=== PATIENT | female | born 1980 | race Caucasian/White ===

== ENCOUNTER 2024-06-29 03:30 | Inpatient (IN) | payer OTHER, SELFPAY ==
--- NOTE | ~2024-06-29 | XR_ITS ---
CLINICAL HISTORY: nausea 1 view abdomen Comparison: None Findings: No abnormal bowel dilation to suggest obstruction. No abnormal calcifications. Right upper quadrant surgical clips. No acute fractures. Mild degenerative change of the lower lumbar spine. IMPRESSION: No evidence of bowel obstruction. This document has been electronically signed by: Ramiro Anton DO on 06/30/2024 09:49:29
--- OUTSIDE RECORDS SUMMARY | 2024-06-29 03:37 | XMS_ITS | Clinical Summary ---
Author Organization [facility] Address [address] [place] [address] Care Team Providers Care Pool Technician Name Role Phone Patient, Has No Pcp Or Ref Primary Care Provider Unavailable Allergies Active Allergy Reactions Criticality Noted Date Comments Lamotrigine Anaphylaxis High 09/13/2023 Venom-Honey Bee Unknown 06/28/2024 Medications methocarbamoL (ROBAXIN) 500 mg tablet Take 1 tablet (500 mg total) by mouth 2 times a day. 20 tablet 4 Active Additional Information Patient not taking.Reported on 06/21/2024 naproxen (NAPROSYN) 500 mg tablet Take 1 tablet (500 mg total) by mouth 2 times a day with meals. 30 tablet 4 Active Additional Information Patient not taking.Reported on 06/21/2024 acetaminophen (TYLENOL) 325 mg tablet Take 2 tablets (650 mg total) by mouth every 6 hours as needed for pain. 30 tablet 4 Active albuterol (PROAIR HFA,VENTOLIN HFA) 90 mcg inhaler Inhale 2 puffs (180 mcg total) by mouth every 4 hours as needed for wheezing or shortness of breath. Use with spacer. 6.7 g 4 Active Additional Information Patient not taking.Reported on 06/21/2024 ibuprofen (MOTRIN) 800 mg tablet Take 1 tablet (800 mg total) by mouth 3 times a day as needed for pain. 90 tablet 1 5 08/03/19 25 Active Encounters Date Type Department Care Team Description 06/28/2024 4:29 PM EDT - 06/29/2024 2:38 AM EDT [facility] Emergency Department [address] [place] [id number] Nathan Dominguez MD Gaudet, Cynthia M., DO Major depressive disorder, recurrent severe without psychotic features (HCC) [F33.2] (Primary Dx); Cannabis use disorder, moderate, dependence (HCC) [F12.20]; Cocaine use disorder, moderate, dependence (HCC) [F14.20]; Generalized anxiety disorder [F41.1] Discharge Disposition: [facility] (INPT Psych facility/unit) (65) 06/24/2024 10:37 PM EDT - 06/24/2024 10:47 PM EDT [facility] Emergency Department [address] [place] [id number] Romario Jimenez MD Discharge Disposition: Left Without Being Seen (07) 06/21/2024 10:19 AM EDT - 06/21/2024 11:33 AM EDT [facility] Emergency Department [address] [place] [id number] Kath Balbuena MD Hip sprain, right, initial encounter (Primary Dx) Discharge Disposition: Home or Self Care () 06/18/[address] Orthopedic Department [address] [place] [phone] Jennifer Armenta MD pain meds 06/03/2024 2:45 PM EDT Office Visit [address] Orthopedic Department [address] [place] [id number] Jennifer Armenta MD Injury of left shoulder, initial encounter (Primary Dx) 05/28/2024 12:29 PM EST - 05/28/2024 4:31 PM EST [facility] Emergency Department [address] [place] [phone] Harinder Esquivel MD Contusion of left shoulder, initial encounter (Primary Dx) Discharge Disposition: Home or Self Care () from Last 3 Months Family History Medical History Relation Name Comments No Known Problems Brother History of mood disorder and substance abuse No Known Problems Father History of mental illness and substance abuse No Known Problems Mother History of substance abuse and mental illness No Known Problems Sister 1 History of Bipolar disorder and substance use No Known Problems Sister 3 History of depression and substance use Relation Name Status Comments Brother Alive Daughter Alive Father Mother Sister 1 Alive Sister 2 Alive Sister 3 Alive Son 1 Alive Son 2 Alive Social History Tobacco Use Types Packs/Day Years Used Date Smoking Tobacco: Former Cigarettes 1 31.3 S tarted: 03/27/1993 Smokeless Tobacco: Never Tobacco Cessation:Counseling Given: Not Answered Alcohol Use Standard Drinks/Week Comments Not Currently 0 (1 standard drink = 0.6 oz pur e alcohol) rare Comments No Sex and Gender Information Value Date Recorded Sex Assigned at Female 09/13/2023 5:04 PM EDT Legal Sex Female 4:10 PM EDT Gender Identity Female 09/13/2023 5:06 PM EDT Sexual Orientation Not on file Last Filed Vital Signs Vital Sign Reading Time Taken Comments Blood Pressure 193/103 06/29/2024 2:27 AM EDT taken after pt ambulated to the EMS stretcher Pulse 60 06/29/2024 2:27 AM EDT Temperature 36.7 ??C (98 ??F) 06/29/2024 2:2 7 AM EDT Respiratory Rate 18 06/29/2024 2:27 AM EDT Oxygen Saturation 97% 06/29/2024 2:2 7 AM EDT Inhaled Oxygen Concentration - - Weight 92.5 kg (204 lb) 06/28/2024 4:25 PM EDT Height 170.2 cm (5' 7 ) 06/28/2024 4:25 PM EDT Body Mass Index 31.95 06/28/2024 4:25 PM EDT Plan of Treatment Health Maintenance Due Date Last Done Comments Cervical Cancer Screening 1978 Cologuard 1978 Colon Cancer Screening 1978 Colonoscopy 1978 FOBT / Fit Test 1978 HIV Screening 1978 HPV and Pap Smear 1978 Hepatitis C Screening 1978 Pap Smear 1978 Sigmoidoscopy 1978 Hepatitis B Vaccines (1 of 3 - 19+ 3-dose series) 1997 DTaP,Tdap,and Td Vaccines (1 - Tdap) 2000 Mammogram 2018 COVID-19 Vaccine (2023-2 5 season) 2023 Alcohol/Substance Use Screening 03/27/2024 Depression Screening and Follow-Up 03/27/2024 Oral Health Screening 03/27/2024 Social Drivers of Health Sarahy ual Screening 03/27/2024 Chlamydia Screening 11/06/2024 11/07/2023 Influenza Vaccine (Season Ended) 2024 RSV Vaccine (60+ years old a nd patients) (1 - 1-dose 75+ series) 2053 Pneumococcal Vaccine: Pediat rachana (0-5 Years) and At-Risk Patients (6-50 Years) Aged Out No longer eligible b ased on patient's age to complete this topic Procedures * Due to [place] state law, this organization might not be sharing negative HIV tests. Procedure Name Priority Date/Time Associated Diagnosis Comments ETHANOL STAT 06/28/2024 5:01 PM EDT CBC AUTO DIFFERENTIAL STAT 06/28/2024 5:01 PM EDT COMPREHENSIVE METABOLIC PANEL STAT 06/28/2024 5:01 PM EDT RAPID COVID-19 RNA FOR SURVEILLANCE (ED ONLY) STAT 06/28/2024 4:56 PM EDT MICROSCOPIC URINALYSIS ONLY STAT 06/28/2024 4:55 PM EDT UA/CULTURE REFLEX STAT 06/28/2024 4:5 5 PM EDT DRUG SCREEN, URINE (ED-NO REFLEX) - HH STAT 06/28/2024 4:55 PM EDT URINALYSIS W/REFLEX TO MICROSCOPIC & CULTURE STAT 06/28/2024 4:55 PM EDT HCG QUALITATIVE, URINE STAT 4:55 PM EDT XR HIP RIGHT 2+ VW W PELVIS STAT 06/21/2024 11:03 AM EDT XR SHOULDER 2+ VW LEFT STAT 3:12 PM EST XR HUMERUS LEFT 2+ VW STAT 05/28/2024 3:12 PM EST CHLAMYDIA/NEISSERIA GONORRHEA RNA STAT 11/07/2023 8:20 PM EDT from Last 3 Months or Most Recently Relevant to Health Maintenance Results * Due to [place] state law, this organization might not be sharing negative HIV tests. * (ABNORMAL) CBC Auto Differential (06/28/2024 5:01 PM EDT) WBC 9.1 4.8 - 10.8 10*3/uL 06/28/2024 5:09 PM EDT [facility] RBC 3.51(L) 4.20 - 5.40 10*6/uL 06/28/2024 5:09 PM EDT [facility] Hemoglobin 10.6(L) 11.7 - 15.5 g/dL 06/28/2024 5:09 PM EDT [facility] Hematocrit 31.6(L) 35.7 - 45.8 % 06/28/2024 5:09 PM EDT [facility] MCV 90.0 81.0 - 99.0 fL 06/28/2024 5:09 PM EDT [facility] MCH 30.2 26.0 - 34.0 pg 06/28/2024 5:09 PM EDT [facility] MCHC 33.5 31.0 - 36.0 g/dL 06/28/2024 5:09 PM EDT [facility] RDW 15.3(H) 12.0 - 15.0 % 06/28/2024 5:09 PM EDT [facility] RDW Standard Deviation 50.4(H) 36.4 - 46.3 fL 06/28/2024 5:09 PM EDT [facility] Platelets 246 140 - 440 10*3/uL 06/28/2024 5:09 PM EDT [facility] MPV 10.3 9.4 - 12.3 fL 06/28/2024 5:09 PM EDT [facility] Neutrophil % 76.4(H) 50.0 - 75.0 % 06/28/2024 5:09 PM EDT [facility] Immature Grans % 0.2 0.0 - 0.9 % 06/28/2024 5:09 PM EDT [facility] Lymphocyte % 17.0(L) 20.0 - 44.0 % 06/28/2024 5:09 PM EDT [facility] Monocyte % 4.4 0.0 - 14.0 % 06/28/2024 5:09 PM EDT [facility] Eosinophil % 1.6 0.0 - 5.0 % 06/28/2024 5:09 PM EDT [facility] Basophil % 0.4 0.0 - 2.0 % 06/28/2024 5:09 PM EDT [facility] Neutrophil # 6.96 1.80 - 7.70 10*3/uL 06/28/2024 5:09 PM EDT [facility] Immature Grans # <0.03 0.00 - 0.03 10*3/uL 06/28/2024 5:09 PM EDT [facility] Lymphocyte # 1.60 1.00 - 4.75 10*3/uL 06/28/2024 5:09 PM EDT [facility] Monocyte # 0.40 0.00 - 0.60 10*3/uL 06/28/2024 5:09 PM EDT [facility] Eosinophil # 0.20 0.00 - 0.80 10*3/uL 06/28/2024 5:09 PM EDT [facility] Basophil # <0.03 0.00 - 0.20 10*3/uL 06/28/2024 5:09 PM EDT [facility] nRBC % 0.0 0 - 0 /100 WBCs 06/28/2024 5:09 PM EDT [facility] nRBC # <0.01 0.00 - 0.13 10*3/uL 06/28/2024 5:09 PM EDT [facility] Blood Structure of peripheral vein / Unknown Venipuncture / Unknown 06/28/2024 5:01 PM EDT 06/28/2024 5:05 PM EDT us Nathan Dominguez MD LAB BLOOD ORDERABLES Final Result Performing Organization Address [facility]/ZIP Co de Phone Number [facility] [address] [place] [address], [place] [phone] * Ethanol (06/28/2024 5:01 PM EDT) Ethanol <10 mg/dL 06/28/2024 5:33 PM EDT [facility] Blood Structure of peripheral vein / Unknown Venipuncture / Unknown 06/28/2024 5:01 PM EDT 06/28/2024 5:05 PM EDT Nathan Dominguez MD LAB BLOOD ORDERABLES Final Result Performing Organization Address [facility]/ZIP Co de Phone Number [facility] [address] [place] [id number], [place] [phone] * (ABNORMAL) Comprehensive Metabolic Panel (06/28/2024 5:01 PM EDT) NA 141 136 - 145 mmol/L 06/28/2024 5:32 PM EDT [facility] K 3.5 3.5 - 5.1 mmol/L 06/28/2024 5:32 PM EDT [facility] Cl 107 98 - 109 mmol/L 06/28/2024 5:32 PM EDT [facility] CO2 21(L) 22 - 32 mmol/L 06/28/2024 5:32 PM EDT [facility] Anion Gap 17 >=0 06/28/2024 5:32 PM EDT [facility] Glucose 118(H) 60 - 99 mg/dL 06/28/2024 5:32 PM EDT [facility] Creatinine 0.83 0.50 - 1.12 mg/dL 06/28/2024 5:32 PM EDT [facility] Calcium 8.7 8.4 - 10.4 mg/dL 06/28/2024 5:32 PM EDT [facility] Total Protein 6.4(L) 6.6 - 8.7 g/dL 06/28/2024 5:32 PM EDT [facility] Albumin 3.9 3.5 - 5.0 g/dL 06/28/2024 5:32 PM EDT [facility] Bilirubin, Total 0.2 0.2 - 1.2 mg/dL 06/28/2024 5:32 PM EDT [facility] Alkaline Phosphatase 60 40 - 129 U/L 06/28/2024 5:32 PM EDT [facility] AST 13 0 - 33 U/L 06/28/2024 5:32 PM EDT [facility] ALT 9 <=33 U/L 06/28/2024 5:32 PM EDT [facility] BUN 15 6 - 20 mg/dL 06/28/2024 5:32 PM EDT [facility] eGFR 89 >=60 mL/min/1. 73m2 06/28/2024 5:32 PM EDT [facility] Comment:The estimated glomer ular filtration rate (eGFR) is calculated using a new formula developed by the NKF-ASN task force to eliminate race-based correction factors. The new formula uses serum/plasma creatinine, age, and gender to determine eGFR. A value below 60mls/min might indicate kidney disease and will be flagged. For additional information, see Shaver et al, Am J Kidney Dis. 2021;79(2):268- 288, A Unifying Approach for GFR estimation: Recommendations of the NKF-ASN Task Force on Reassessing the Inclusion of Race in Diagnosing Kidney Disease . Globulin, Total 2.5 2.1 - 4.2 g/dL 06/28/2024 5:32 PM EDT [facility] A/G Ratio 1.6 1.5 - 3.0 06/28/2024 5:32 PM EDT [facility] Blood Structure of peripheral vein / Unknown Venipuncture / Unknown 06/28/2024 5:01 PM EDT 06/28/2024 5:05 PM EDT us Nathan Dominguez MD LAB BLOOD ORDERABLES Final Result Performing Organization Address [facility] de Phone Number [facility] [address] [address], [place] [phone] * Rapid COVID-19 for Surveillance - Psych/Admission (06/28/2024 4:56 PM EDT) Pathologist [facility] PCR, SARS CoV-2 RNA Not Detected Not Detected [employer] 06/28/2024 5:46 PM EDT [facility] Swab (Nares) Non-Blood Collection / Unknown 06/28/2024 4:56 PM EDT 06/28/2024 5:00 PM EDT Narrative [facility] - 06/28/2024 5:46 PM EDT Methodology: The [employer] GeneXpert CoV-2 assay is For Use Under an Emergency Use Authorization (EUA) Only with [employer]. The CoV-2 assay is a rapid, real-time RT- PCR assay intended for the qualitative detection of RNA from SARS-CoV-2 in specimens collected from individuals suspected of a respiratory viral infection, by their healthcare provider. A positive test result for SARS-CoV-2 indicates that RNA from that virus was detected. A negative test result indicates that RNA virus was not present in the specimen above the limit of detection. Therefore, a negative result does not rule out SARS-CoV-2 infection and should not be used as the sole basis for treatment or other patient management decisions. us Nathan Dominguez MD LAB BODY FLUIDS AND STOOLS ORDERABLES Final Result Performing Organization Address [facility]/ZIP Co de Phone Number [facility] [address] [address], [place] [phone] * (ABNORMAL) Urine Drug Screen - No Reflex Testing - [facility] (06/28/2024 4:55 PM EDT) [facility] Opiate Screen, Urine Negative Negative 06/28/2024 5:39 PM EDT [facility] Comment: METHOD SENSITIVITY:OPIATES POSITIVE IF > 300 NG/ML NOT A CONFIRMATORY TEST --FOR MEDICAL PURPOSES ONLY-- Barbiturate Screen, Urine Negative Negative 06/28/2024 5:39 PM EDT [facility] Comment: METHOD SENSITIVITY:BARBITURATES POSITIVE IF >/=200 NG/ML NOT A CONFIRMATORY TEST --FOR MEDICAL PURPOSES ONLY-- Amphetamine Screen, Urine Negative Negative 06/28/2024 5:39 PM EDT [facility] Comment: METHOD SENSITIVITY:AMPHETAMINES POSITIVE IF >/=1000 NG/ML NOT A CONFIRMATORY TEST --FOR MEDICAL PURPOSES ONLY-- Benzodiazepine Screen, Urine Negative Negative 06/28/2024 5:39 PM EDT [facility] Comment: METHOD SENSITIVITY:BENZODIAZEPINES POS IF >/=1OO NG/ML NOT A CONFIRMATORY TEST --FOR MEDICAL PURPOSES ONLY-- Fentanyl Screen, Urine Negative Negative 06/28/2024 5:39 PM EDT [facility] Comment: METHOD SENSITIVITY:FENTANYL POSITIVE IF >/=1 NG/ML NOT A CONFIRMATORY TEST --FOR MEDICAL PURPOSES ONLY-- Cocaine Screen, Urine Positive(A) Negative 06/28/2024 5:39 PM EDT [facility] Comment: METHOD SENSITIVITY:COCAINE POSITIVE IF >/=300 NG/ML NOT A CONFIRMATORY TEST --FOR MEDICAL PURPOSES ONLY-- Cannabinoid Screen, Urine Positive(A) Negative 06/28/2024 5:39 PM EDT [facility] Comment: METHOD SENSITIVITY:THC POS IF >/= 50 NG/ML NOT A CONFIRMATORY TEST --FOR MEDICAL PURPOSES ONLY-- Oxycodone Screen, Urine Negative Negative 06/28/2024 5:39 PM EDT [facility] Comment: METHOD SENSITIVITY:OXYCODONE POSITIVE IF >300 ng/mL NOT A CONFIRMATORY TEST --FOR MEDICAL PURPOSES ONLY-- Methadone Screen, Urine Negative Negative 06/28/2024 5:39 PM EDT [facility] Comment: METHOD SENSITIVITY:METHADONE POSITIVE IF >/=300 ng/mL NOT A CONFIRMATORY TEST --FOR MEDICAL PURPOSES ONLY-- Methadone Metabolite Screen, Urine Negative Negative 06/28/2024 5:39 PM EDT [facility] Comment: METHOD SENSITIVITY:METHADONE METABOLITE POSITIVE IF >/=100 ng/mL NOT A CONFIRMATORY TEST --FOR MEDICAL PURPOSES ONLY-- Urine Voided urine specimen / Unknown Non-Blood Collection / Unknown 06/28/2024 4:55 PM EDT 06/28/2024 5:00 PM EDT us Nathan Dominguez MD LAB URINE ORDERABLES Final Result [facility] [address] [place] [address] [address] [place] [address], [place] [phone] * (ABNORMAL) Microscopic Urinalysis Only (06/28/2024 4:55 PM EDT) RBC, Urine 10-20(A) None Seen, 0-2 /HPF 06/28/2024 5:29 PM EDT [facility] WBC, Urine 10-20(A) None Seen, 0-2 /HPF 06/28/2024 5:29 PM EDT [facility] WBC Clumps, Urine 3-5 /HPF 06/28/2024 5:29 PM EDT [facility] Squamous Epithelial Cells, Urine 0-2 /HPF 06/28/2024 5:29 PM EDT [facility] Bacteria, Urine Small(A) None Seen /HPF 06/28/2024 5:29 PM EDT [facility] Mucus, Urine Small /HPF 06/28/2024 5:29 PM EDT [facility] Urine Urine specimen collection, clean catch / Unknown Non-Blood Collection / Unknown 06/28/2024 4:55 PM EDT 06/28/2024 5:11 PM EDT us Nathan Dominguez MD LAB URINE ORDERABLES Final Result [facility] [address] [place] [address] [address] [place] [address], [place] [phone] * (ABNORMAL) Urinalysis W/Reflex to Microscopic & Culture (06/28/2024 4:55 PM EDT) Color, Urine Yellow Yellow 06/28/2024 5:11 PM EDT [facility] Clarity, Urine Cloudy(A) Clear 06/28/2024 5:11 PM EDT [facility] Specific [place], Urine >=1.030 1.005 - 1.030 06/28/2024 5:11 PM EDT [facility] pH, Urine 5.5 5.0 - 8.0 06/28/2024 5:11 PM EDT [facility] Protein, Urine 30(A) Negative mg/dL 06/28/2024 5:11 PM EDT [facility] Glucose, Urine Negative Negative mg/dL 06/28/2024 5:11 PM EDT [facility] Ketones, Urine Trace(A) Negative mg/dL 06/28/2024 5:11 PM EDT [facility] Bilirubin, Urine Negative Negative 06/28/2024 5:11 PM EDT [facility] Blood, Urine Moderate(A) Negative 06/28/2024 5:11 PM EDT [facility] Nitrite, Urine Negative Negative 06/28/2024 5:11 PM EDT [facility] Urobilinogen, Urine 1.0 0.2 - 1.0 E.U./dL 06/28/2024 5:11 PM EDT [facility] Leukocyte Esterase, Urine Moderate(A) Negative 06/28/2024 5:11 PM EDT [facility] Urine Urine specimen collection, clean catch / Unknown Non-Blood Collection / Unknown 06/28/2024 4:55 PM EDT 06/28/2024 5:00 PM EDT Nathan Dominguez MD LAB URINE ORDERABLES Final Result Performing Organization Address [facility] de Phone Number [address] [address], [place] [phone] * HCG Qualitative, Urine (06/28/2024 4:55 PM EDT) HCG Qualitative, Urine Negative 06/28/2024 5:14 PM EDT [facility] Comment: hCG may be negative in early . ??Suggest repeat testing in 2-4 days if clinically indicated. ??The results of this test should be interpreted with the patient's clinical presentation. Urine Urine specimen collection, clean catch / Unknown Non-Blood Collection / Unknown 06/28/2024 4:55 PM EDT 06/28/2024 5:00 PM EDT Nathan Dominguez MD LAB URINE ORDERABLES Final Result Performing Organization Address [facility] de Phone Number [facility] [address] [place] [address], [place] [phone] * XR Hip Right 2+ vw W Pelvis (06/21/2024 11:03 AM EDT) Anatomical Region Laterality Modality Body, Pelvis, Hip Right Radiographic I maging 06/21/2024 11:2 1 AM EDT Impressions 06/21/2024 11:22 AM EDT Portions of the pelvis are partially secured due to overlying bowel gas and stool. Allowing for this limitation there is no evidence of an acute displaced fracture or dislocation. Mild osteoarthritis throughout the pelvis. If this radiology report contains a blank impression section, it is an incomplete radiology report. ??Please contact the interpreting radiologist or applicable radiology division as soon as possible to obtain the completed interpretation. ? Workstation ID: [id number] Narrative 06/21/2024 11:22 AM EDT COMPARISON: None FINDINGS AND Resulting Agency Comment [id number] Procedure Note Nathan Dela Cruz MD - 06/21/2024 COMPARISON: None FINDINGS AND IMPRESSION: Portions of the pelvis are partially secured due to overlying bowel gasand stool. Allowing for this limitation there is no evidence of an acutedisplaced fracture or dislocation. Mild osteoarthritis throughout thepelvis. If this radiology report contains a blank impression section, it is anincomplete radiology report. Please contact the interpreting radiologistor applicable radiology division as soon as possible to obtain thecompleted interpretation. Workstation ID: [id number] us Kath Balbuena MD IMG XR PROCEDURES Final Result * X-Ray Shoulder Left 2+ Views (05/28/2024 3:12 PM EST) Anatomical Region Laterality Modality Upper Extremities, Shoulder Left Radi ographic Imaging 05/28/2024 3:20 PM EST Impressions 05/28/2024 3:26 PM EST Left shoulder calcific tendinopathy. IGiovani, have reviewed the examination and concur with the findings as reported or so edited. Trainee: ??Yasir Neumann If this radiology report contains a blank impression section, it is an incomplete radiology report. ??Please contact the interpreting radiologist or applicable radiology division as soon as possible to obtain the completed interpretation. ? Workstation ID: [id number] Narrative 05/28/2024 3:26 PM EST COMPARISON: ??Radiograph left shoulder 08/31/2017.. ?? FINDINGS: Left shoulder: No fracture. Humeral head is well-positioned. Mild acromioclavicular osteoarthritis. Small calcification measuring 2 mm adjacent to the greater tuberosity most likely related to calcific tendinopathy. Left humerus: No fracture. Soft tissues unremarkable. Resulting Agency Comment [id number] Procedure Note Giovani Serrato MD - 05/28/2024 COMPARISON: Radiograph left shoulder 08/31/2017.. FINDINGS: Left shoulder: No fracture. Humeral head is well-positioned. Mildacromioclavicular osteoarthritis. Small calcification measuring 2 mmadjacent to the greater tuberosity most likely related to calcifictendinopathy. Left humerus: No fracture. Soft tissues unremarkable. IMPRESSION: Left shoulder calcific tendinopathy. I, Giovani Serrato, have reviewed the examination and concur with thefindings as reported or so edited. Trainee: Yasir Neumann If this radiology report contains a blank impression section, it is anincomplete radiology report. Please contact the interpreting radiologistor applicable radiology division as soon as possible to obtain thecompleted interpretation. Workstation ID: [id number] us Harinder Esquivel MD IMG XR PROCEDURES Final Resu lt * X-Ray Humerus Left 2+ VW (05/28/2024 3:12 PM EST) Anatomical Region Laterality Modality Upper Extremities, Humerus Left Radio graphic Imaging 05/28/2024 3:20 PM EST Impressions 05/28/2024 3:26 PM EST Left shoulder calcific tendinopathy. IGiovani, have reviewed the examination and concur with the findings as reported or so edited. Trainee: ??Yasir Neumann If this radiology report contains a blank impression section, it is an incomplete radiology report. ??Please contact the interpreting radiologist or applicable radiology division as soon as possible to obtain the completed interpretation. ? Workstation ID: [id number] Narrative 05/28/2024 3:26 PM EST COMPARISON: ??Radiograph left shoulder 08/31/2017.. ?? FINDINGS: Left shoulder: No fracture. Humeral head is well-positioned. Mild acromioclavicular osteoarthritis. Small calcification measuring 2 mm adjacent to the greater tuberosity most likely related to calcific tendinopathy. Left humerus: No fracture. Soft tissues unremarkable. Resulting Agency Comment [id number] Procedure Note Giovani Serrato MD - 05/28/2024 COMPARISON: Radiograph left shoulder 08/31/2017.. FINDINGS: Left shoulder: No fracture. Humeral head is well-positioned. Mildacromioclavicular osteoarthritis. Small calcification measuring 2 mmadjacent to the greater tuberosity most likely related to calcifictendinopathy. Left humerus: No fracture. Soft tissues unremarkable. IMPRESSION: Left shoulder calcific tendinopathy. Giovani Lofton, have reviewed the examination and concur with thefindings as reported or so edited. Trainee: Yasir Neumann If this radiology report contains a blank impression section, it is anincomplete radiology report. Please contact the interpreting radiologistor applicable radiology division as soon as possible to obtain thecompleted interpretation. Workstation ID: [id number] us Harinder Esquivel MD IMG XR PROCEDURES Final Resu lt * Chlamydia/Neisseria gonorrhoeae RNA (11/07/2023 8:20 PM EDT) Pathologist [facility] Chlamydia trachomatis RNA, TMA NOT DETECTED NOT DETECTED 11/09/2023 12:47 PM EDT [facility] Neisseria Gonorrhoeae RNA, TMA NOT DETECTED NOT DETECTED 11/09/2023 12:47 PM EDT [facility] Comment: The analytical performance characteristics of this assay, when used to test SurePath(TM) specimens have been determined by [employer]. The modifications have not been cleared or approved by the FDA. This assay has been validated pursuant to the CLIA regulations and is used for clinical purposes. For additional information, please refer to https://education.[employer]/faq/ZTN035 (This link is being provided for information/ educational purposes only.) Urine Voided urine specimen / Unknown Non-Blood Collection / Unknown 11/07/2023 8:20 PM EDT 11/07/2023 8:33 PM EDT Narrative [facility] - 11/09/2023 12:47 PM EDT [facility] Received Date:[id number] us Julian Lange MD LAB URINE ORDERABLES Fin al Result [facility] [address] [place] [address], [place] [address], [place] [phone] from Last 3 Months or Most Recently Relevant to Health Maintenance Insurance [facility] MEDICAID Advance Directives Documents on File Type Date Recorded 

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
--- OUTSIDE RECORDS SUMMARY | 2024-06-29 03:38 | XMS_ITS | Encounter Summary ---
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 [facility] nRBC % 0.0 0 - 0 /100 WBCs 06/28/2024 5:09 PM EDT [facility] nRBC # <0.01 0.00 - 0.13 10*3/uL 06/28/2024 5:09 PM EDT [facility] Blood Structure of peripheral vein / Unknown Venipuncture / Unknown 06/28/2024 5:01 PM EDT 06/28/2024 5:05 PM EDT Nathan Dominguez MD LAB BLOOD ORDERABLES Final Result [facility] [address] [place] [address] [address] [place] [address], * (ABNORMAL) Comprehensive Metabolic Panel (06/28/2024 5:01 PM EDT) NA 141 136 - 145 mmol/L 06/28/2024 5:32 PM EDT [facility] K 3.5 3.5 - 5.1 mmol/L 06/28/2024 5:32 PM EDT [facility] Cl 107 98 - 109 mmol/L 06/28/2024 5:32 PM EDT [facility] CO2 21(L) 22 - 32 mmol/L 06/28/2024 5:32 PM EDT [facility] Anion Gap 17 >=0 06/28/2024 5:32 PM EDT [facility] Glucose 118(H) 60 - 99 mg/dL 06/28/2024 5:32 PM EDT [facility] Creatinine 0.83 0.50 - 1.12 mg/dL 06/28/2024 5:32 PM EDT [facility] Calcium 8.7 8.4 - 10.4 mg/dL 06/28/2024 5:32 PM EDT [facility] Total Protein 6.4(L) 6.6 - 8.7 g/dL 06/28/2024 5:32 PM EDT [facility] Albumin 3.9 3.5 - 5.0 g/dL 06/28/2024 5:32 PM EDT [facility] Bilirubin, Total 0.2 0.2 - 1.2 mg/dL 06/28/2024 5:32 PM EDT [facility] Alkaline Phosphatase 60 40 - 129 U/L 06/28/2024 5:32 PM EDT [facility] AST 13 0 - 33 U/L 06/28/2024 5:32 PM EDT [facility] ALT 9 <=33 U/L 06/28/2024 5:32 PM EDT [facility] BUN 15 6 - 20 mg/dL 06/28/2024 5:32 PM T [facility] eGFR 89 >=60 mL/min/1. 73m2 06/28/2024 5:32 PM EDT [facility] Comment:The estimated glomer ular filtration rate (eGFR) is calculated using a new formula developed by the NKF-ASN task force to eliminate race-based correction factors. The new formula uses serum/plasma creatinine, age, and gender to determine eGFR. A value below 60mls/min might indicate kidney disease and will be flagged. For additional information, see Chhaya eli al, Am J Kidney Dis. 2021;79(2):268- 288, A Unifying Approach for GFR estimation: Recommendations of the NKF-ASN Task Force on Reassessing the Inclusion of Race in Diagnosing Kidney Disease . Globulin, Total 2.5 2.1 - 4.2 g/dL 06/28/2024 5:32 PM EDT [facility] A/G Ratio 1.6 1.5 - 3.0 06/28/2024 5:32 PM EDT [facility] Blood Structure of peripheral vein / Unknown Venipuncture / Unknown 06/28/2024 5:01 PM EDT 06/28/2024 5:05 PM EDT Nathan Dominguez MD LAB BLOOD ORDERABLES Final Result [facility] [address] [place] [address] [address] [place] [address], [place] [phone] * Rapid COVID-19 for Surveillance - Psych/Admission (06/28/2024 4:56 PM EDT) [facility] PCR, SARS CoV-2 RNA Not Detected Not Detected [employer] 06/28/2024 5:46 PM EDT [facility] Swab (Nares) Non-Blood Collection / Unknown 06/28/2024 4:56 PM EDT 06/28/2024 5:00 PM EDT Narrative [facility] - 06/28/2024 5:46 PM EDT Methodology: The [employer] GeneXpert CoV-2 assay is For Use Under an Emergency Use Authorization (EUA) Only with [employer]. The CoV-2 assay is a rapid, [...] STOOLS ORDERABLES Final Result Performing Organization Address [facility]/ZIP Co de Phone Number [facility] [address] [address], [place] [phone] * (ABNORMAL) Microscopic Urinalysis Only (06/28/2024 4:55 PM EDT) RBC, Urine 10-20(A) None Seen, 0-2 /HPF 06/28/2024 5:29 PM EDT [facility] WBC, Urine 10-20(A) None Seen, 0-2 /HPF 06/28/2024 5:29 PM EDT [facility] WBC Clumps, Urine 3-5 /HPF 06/28/2024 5:29 PM EDT [facility] Squamous Epithelial Cells, Urine 0-2 /HPF 06/28/2024 5:29 PM EDT [facility] Bacteria, Urine Small(A) None Seen /HPF 06/28/2024 5:29 PM EDT [facility] Mucus, Urine Small /HPF 06/28/2024 5:29 PM EDT [facility] Urine Urine specimen collection, clean catch / Unknown Non-Blood Collection / Unknown 06/28/2024 4:55 PM EDT 06/28/2024 5:11 PM EDT Nathan Dominguez MD LAB URINE ORDERABLES Final Result Performing Organization Address [facility] Co de Phone Number [facility] [address] [address], [place] [phone] * (ABNORMAL) Urinalysis W/Reflex to Microscopic & Culture (06/28/2024 4:55 PM EDT) Color, Urine Yellow Yellow 06/28/2024 5:11 PM EDT [facility] Clarity, Urine Cloudy(A) Clear 06/28/2024 5:11 PM EDT [facility] Specific [place], Urine >=1.030 1.005 - 1.030 06/28/2024 5:11 PM EDT [facility] pH, Urine 5.5 5.0 - 8.0 06/28/2024 5:11 PM EDT [facility] Protein, Urine 30(A) Negative mg/dL 06/28/2024 5:11 PM EDT [facility] Glucose, Urine Negative Negative mg/dL 06/28/2024 5:11 PM EDT [facility] Ketones, Urine Trace(A) Negative mg/dL 06/28/2024 5:11 PM EDT [facility] Bilirubin, Urine Negative Negative 06/28/2024 5:11 PM EDT [facility] Blood, Urine Moderate(A) Negative 06/28/2024 5:11 PM EDT [facility] Nitrite, Urine Negative Negative 06/28/2024 5:11 PM EDT [facility] Urobilinogen, Urine 1.0 0.2 - 1.0 E.U./dL 06/28/2024 5:11 PM EDT [facility] Leukocyte Esterase, Urine Moderate(A) Negative 06/28/2024 5:11 PM EDT [facility] Urine Urine specimen collection, clean catch / Unknown Non-Blood Collection / Unknown 06/28/2024 4:55 PM EDT 06/28/2024 5:00 PM EDT Nathan Dominguez MD LAB URINE ORDERABLES Final Result Performing Organization Address [facility] Co de Phone Number [facility] [address] [place] [address], * (ABNORMAL) Urine Drug Screen - No Reflex Testing - [facility] (06/28/2024 4:55 PM EDT) Opiate Screen, Urine Negative Negative 06/28/2024 5:39 PM EDT [facility] Comment: METHOD SENSITIVITY:OPIATES POSITIVE IF > 300 NG/ML NOT A CONFIRMATORY TEST --FOR MEDICAL PURPOSES ONLY-- Barbiturate Screen, Urine Negative Negative 06/28/2024 5:39 PM EDT [facility] Comment: METHOD SENSITIVITY:BARBITURATES POSITIVE IF >/=200 NG/ML NOT A CONFIRMATORY TEST --FOR MEDICAL PURPOSES ONLY-- Amphetamine Screen, Urine Negative Negative [facility]: METHOD SENSITIVITY:AMPHETAMINES POSITIVE IF >/=1000 NG/ML NOT A CONFIRMATORY TEST --FOR MEDICAL PURPOSES ONLY-- Benzodiazepine Screen, Urine Negative Negative 06/28/2024 5:39 PM EDT [facility] Comment: METHOD SENSITIVITY:BENZODIAZEPINES POS IF >/=1OO NG/ML NOT A CONFIRMATORY TEST --FOR MEDICAL PURPOSES ONLY-- Fentanyl Screen, Urine Negative Negative [facility]2024 [facility] Comment: METHOD SENSITIVITY:FENTANYL POSITIVE IF >/=1 NG/ML NOT A CONFIRMATORY TEST --FOR MEDICAL PURPOSES ONLY-- Cocaine Screen, Urine Positive(A) Negative 06/28/2024 5:39 PM [facility] Comment: METHOD SENSITIVITY:COCAINE POSITIVE IF >/=300 NG/ML NOT A CONFIRMATORY TEST --FOR MEDICAL PURPOSES ONLY-- Cannabinoid Screen, Urine Positive(A) Negative 06/28/2024 5:39 PM [facility] Comment: METHOD SENSITIVITY:THC POS IF >/= 50 NG/ML NOT A CONFIRMATORY TEST --FOR MEDICAL PURPOSES ONLY-- Oxycodone Screen, Urine Negative Negative 06/28/2024 5:39 PM [facility] Comment: METHOD SENSITIVITY:OXYCODONE POSITIVE IF >300 ng/mL NOT A CONFIRMATORY TEST --FOR MEDICAL PURPOSES ONLY-- Methadone Screen, Urine Negative Negative 06/28/2024 5:39 PM [facility] Comment: METHOD SENSITIVITY:METHADONE POSITIVE IF >/=300 ng/mL NOT A CONFIRMATORY TEST --FOR MEDICAL PURPOSES ONLY-- Methadone Metabolite Screen, Urine Negative Negative 06/28/2024 5:39 PM [facility] Comment: METHOD SENSITIVITY:METHADONE METABOLITE POSITIVE IF >/=100 ng/mL NOT A CONFIRMATORY TEST --FOR MEDICAL PURPOSES ONLY-- Urine Voided urine specimen / Unknown Non-Blood Collection / Unknown 06/28/2024 4:55 PM EDT 06/28/2024 5:00 PM EDT us Nathan Dominguez MD LAB URINE ORDERABLES Final Result Performing Organization Address [facility] de Phone Number [facility] [address] [place] [address], [place] [phone] * HCG Qualitative, Urine (06/28/2024 4:55 PM EDT) HCG Qualitative, Urine Negative 06/28/2024 5:14 PM EDT [facility] Comment: hCG may be negative [...] URINE ORDERABLES Final Result Performing Organization Address [facility] de Phone Number [facility] [address] [place] [address], [place] [phone] documented in this encounter Visit Diagnoses Diagnosis Major depressive disorder, recurrent severe without psychotic features (HCC) [F33.2]- Primary Cannabis use disorder, moderate, dependence (HCC) [F12.20] Cocaine use disorder, moderate, dependence (HCC) [F14.20] Generalized anxiety disorder [F41.1] Generalized anxiety disorder documented in this encounter Administered Medications Active Administered Medications - up to 3 most recent administrations Medication Order MAR Action Action Date Dose Rate Site acetaminophen (TYLENOL) tablet 975 mg 975 mg, oral, Every 6 hours PRN, Mild pain or 1-3 (on the numeric pain scale), Starting on Mon06/28/24 at 2010, Until Discontinued Given 06/28/2024 8:19 PM EDT 975 mg Inactive Administered Medications - up to 3 most recent administrations Medication Order MAR Action Action Date Dose Rate Site ketorolac (TORADOL) injection 30 mg 30 mg, intramuscular, Once, On Mon06/28/24 at 2014, 1 dose Given 06/28/2024 8:15 PM EDT 30 mg Right Deltoid documented in this encounter Active and Recently Administered Medications Times are shown in EDT. Scheduled Medication Order 06/27/2024 06/28/2024 06/29/2024 ketorolac (TORADOL) injection 30 mg (COMPLETED) 30 mg, intramuscular, Once, On Mon06/28/24 at 2014, 1 dose 2014 (Given - Provider: Dana Abrams RN) PRN Medication Order 06/27/2024 06/28/2024 06/29/2024 acetaminophen (TYLENOL) tablet 975 mg 975 mg, oral, Every 6 hours PRN, Mild pain or 1-3 (on the numeric pain scale), Starting on Mon06/28/24 at 2010, Until Discontinued 2018 (Given - Provider: Delfina Abrams RN) documented in this encounter Care Teams Sneller Hand Relationship Specialty Start Date End Date Patient, Has No Pcp Or Ref DO NOT EDIT THIS RECORD VIA PROVIDER ON THE FLY PCP - General Senior Site Manager 06/28/24 documented as of this encounter
--- OUTSIDE RECORDS SUMMARY | 2024-06-29 03:38 | XMS_ITS | Clinical Summary ---
Author Organization [facility] Address [address] [place] [address] Phone Care Team Providers Care Bicycle Mechanic Name Role Phone Unknown, Unknown Primary Care Provider Rochelle lable Allergies No known active allergies Social History Tobacco Use Types Packs/Day Years Used Date Smoking Tobacco: Never Assessed Education Answer Date Recorded Are you interested in more education? Not on noemy e 07/22/2022 Are you concerned about learning? Not on file 07/22/2022 No 07/22/2022 No 07/22/2022 Digital Access Answer Date Recorded No 08/23/2022 No 08/23/2022 No 08/23/2022 Reliable internet access at home? Not on file 08/23/2022 Device with a working camera? Not on file Sex and Gender Information Value Date Recorded Sex Assigned at Not on file Gender Identity Not on file Sexual Orientation Not on file Last Filed Vital Signs Vital Sign Reading Time Taken Comments Blood Pressure 180/90 03/06/2019 12:20 PM EST Pulse 60 03/06/2019 12:10 PM EST Temperature 36.7 ??C (98.1 ??F) 03/06/2019 1 2:04 PM EST Respiratory Rate 16 03/06/2019 12:0 4 PM EST Oxygen Saturation 96% 03/06/2019 12: 10 PM EST Inhaled Oxygen Concentration - - Weight 126.9 kg (279 lb 12.2 oz) 2018 11:52 AM EST Height 169.5 cm (5' 6.73 ) 03/06/2019 1 1:52 AM EST Body Mass Index 44.17 03/06/2019 11:52 AM EST Plan of Treatment Health Maintenance Due Date Last Done Comments Adult Td,Tdap Booster 1978 LIPID PANEL 1978 DEPRESSION SCREENING 1990 SMOKING Hx and SMOKELESS TOB ACCO SCREENING 09/16/1991 HEPATITIS C SCREENING 1996 PAP SMEAR 09/16/1999 MAMMOGRAM 2018 COLOGUARD 09/16/2023 COLONOSCOPY 09/16/2023 COLORECTAL CANCER SCREENING 09/16/2023 FIT TEST 09/16/2023 FOBT 09/16/2023 SIGMOIDOSCOPY 09/16/2023 VIRTUAL COLONOSCOPY 09/16/2023 INFLUENZA VACCINE (#1) 2023 COVID-19 VACCINE ( - 2023-2 5 season) 2023 HIV ONE-TIME SCREENING (18-6 5 YEARS) Completed 03/06/2019 HEPATITIS A VACCINES Aged Out No long er eligible based on patient's age to complete this topic HIB VACCINES Aged Out No longer eligi ble based on patient's age to complete this topic MENINGOCOCCAL VACCINES (ACWY) Aged Out No longer eligible based on patient's age to complete this topic PNEUMOCOCCAL VACCINES (0-49 years) Aged Out No longer eligible based on patient's age to complete this topic Medical Devices Not on file Care Teams Bicycle Mechanic Relationship Specialty Start Date End Date Unknown, Unknown, PCP - General 02/18/19 Additional Source Comments The information contained in this document represents components of the legal health record. It is not the complete legal health record.[facility]
[2024-06-29 04:20] VITALS: BP 158/88; PULSE 85; RESP 18; TEMP 36.6; O2SAT 95
[2024-06-29] MEDS: Acetaminophen 325 MG TABLET 650 MG PO ×3 (04:29→23:21)
[2024-06-29] MEDS: traZODone HCL 50 MG TABLET PO ×2 (04:29→23:21)
[2024-06-29] MEDS: hydrOXYzine HCL 25 MG TABLET PO ×2 (04:30→23:21)
[2024-06-29 04:48] VITALS: BMI 31.9
--- NOTE | 2024-06-29 05:47 | PC.ADMIT ---
Brittney is from [facility]. Patient signed in CV on arrival. Patient is a 43 year old female Kinyarwanda speaking . Patient went to the ED because she was having suicidal ideation and was thinking about overdosing on her brother's medications. Patient reported elevated levels of anxiety and depression with continued suicidal ideation. Patient stated that she has been attempting to get back into a [facility] to resume some medications. Patient is in chronic pain in her bilateral knees, back, and bilateral shoulders. Patient was using crutches at home and has been given a walker to use on the unit. Patient reporting anxiety /10, depression /, and active intermittent SI with no plan in place. Patient denies any HI or AH/VH. Patient reports smoking crack cocaine and using marijuana daily. Patient also using a nicotine vape daily - about 1 pack a day. Patient skin check done. Has a bruise on her right under eye with small cuts, bruising, and scraps on her right ankle and bilateral knees.Patient placed on 5 minute safety checks due to use of walker and unsteady gait due to chronic pain.
[2024-06-29 08:00] VITALS: BP 146/65; PULSE 50; RESP 12; TEMP 36.8; O2SAT 96
[2024-06-29] MEDS: Ibuprofen 800 MG TABLET PO ×2 (09:23→18:21)
--- NOTE | 2024-06-29 09:25 | PC.NURSE ---
pt refused flu vaccine at this time, pt asked to reach back out later if she changed her mind.
[2024-06-29 09:42] LABS: Alanine Aminotransferase 9 U/L (0-31); Albumin Level 3.6 g/dL (3.5-5.0); Alkaline Phosphatase 53 U/L (39-117); Anion Gap 9 (12-20); Aspartate Amino Transferase 15 U/L (5-31); Bilirubin Total 0.3 mg/dL (0.0-1.0); Blood Urea Nitrogen 18 mg/dL (9-16); Calcium 8.6 mg/dL (8.4-10.2); Carbon Dioxide 25 mmol/L (22-29); Chloride 113 mmol/L (96-108); Estimated Glomerular Filt Rate > 60; Glucose Random 78 mg/dL (60-115); Potassium 3.7 mmol/L (3.3-5.1); Sodium 143 mmol/L (135-145); Total Protein 6.3 g/dL (6.5-8.0)
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
[2024-06-29 23:15] VITALS: BP 168/86; PULSE 57; RESP 16; TEMP 36.9; O2SAT 94
[2024-06-29] MEDS: methocarbamoL 500 MG TABLET PO (23:21)
[2024-06-29] MEDS: Baclofen 10 MG TABLET PO (23:21)
[2024-06-29] MEDS: Gabapentin 100 MG CAPSULE PO (23:21)
[2024-06-30] VITALS (23 sets, daily range): BP systolic 149–208; BP diastolic 68–105; PULSE 52–80; RESP 16–18; TEMP 35.5–37.9; O2SAT 95–100
[2024-06-30] MEDS: Ibuprofen 800 MG TABLET PO (00:07)
[2024-06-30] MEDS: Ondansetron ODT 4 MG TAB.RAPDIS TRANSLINGU (05:00)
--- NOTE | 2024-06-30 05:09 | PM.EVENT ---
Event Note Date of Service: 06/30/24 Event Note: RR called by nursing at 0453 AM to Room 322-1 for Brittney Sy. Pt awakened suddenly with severe nausea and dry heaves. BP on Left arm with a cuff that was too small was 204 systolic. Once checked on R arm with large cuff, BP 185/93. BP overall this admission has been elevated. Pt denied chest pain, AMOR, SOB at rest and reported chronic pain in L shoulder with known rotator cuff injury and R hip area with known torn ligament per pt's report. Pt states she was using crack cocaine daily until 3 days prior. Pt also uses marijuana regularly. Pt does not have her gallbladder. Pt had her tubes tied and is not . PE: pt awake, responsive, able to follow commands. Pt able to move all extremities. Pt had at least 2 episodes of dry heaves and reported generalized pain but tolerated abdominal exam with no guarding. No distension or tenderness found. Abdomen soft. No hepatomegaly. No edema in BLEs. Pt has active bowel sounds throughout. Ordered zofran SL, tramadol 50 mgs X1 for pain, CBC with diff, CMP, troponin. ECG also ordered noting HTN. Amlodipine 5 mg ordered for HTN. VS now Q1H X4 or until BP stabilizes. Elevated BP in setting of Nausea and pain. Pt can remain on psychaitric floor for now. Will sign out to day provider and reviewe POC with nursing. A/P Nausea, Dry Heaves: Zofran SL prn, encourage hydration when able HTN: amlodipine 5 mgs daily, VS Q1H until BP stabilizes, ECG, Troponin, basic labs ordered stat Pain mgmt (chronic pain): tramadol 50 mgs [address] Dawson in setting of psychiatric care needs POC reviewed with Dr. Dawson. Time Spent With Patient Time: Total time managing care of this patient today __30__ minutes.
[2024-06-30 06:23] LABS: MANUAL DIFF FLAG NO
[2024-06-30 06:24] LABS: Basophils Absolute Auto 0.1 X10*3/uL (0.0-0.2); Basophils Percent Auto 0.6 % (0-2); Eosinophils Absolute Auto 0.2 X10*3/uL (0.0-0.4); Eosinophils Percent Auto 2.5 % (0-4); Hemoglobin 12.1 g/dl (12.0-16.0); Imm Gran Abs Auto 0.03 X10*3/uL (0.00-0.03); Imm Gran Pct Auto 0.3 % (0.0-0.4); Lymphocytes Absolute Auto 1.1 X10*3/uL (1.2-4.9); Mean Corpuscular HGB Conc 33.6 g/dl (31.0-35.0); Mean Corpuscular Hemoglobin 30.6 pg (27.0-33.0); Mean Corpuscular Volume 90.9 fL (80.0-98.0); Mean Platelet Volume 10.5 fL (9.4-12.3); Monocytes Absolute Auto 0.5 X10*3/uL (0.1-1.2); Monocytes Percent Auto 5.4 % (2-11); Neutrophils Absolute Auto 6.8 x10*3/uL (2.0-8.3); Neutrophils Percent Auto 78.2 % (45-73); Platelet Count 236 X10*3/uL (160-400); Red Blood Count 3.96 X10*6/uL (4.20-5.50); Red Cell Distribution Width 15.3 % (11.0-16.0); White Blood Count 8.7 X10*3/uL (4.8-10.8)
[2024-06-30 06:41] LABS: Alanine Aminotransferase 10 U/L (0-31); Albumin Level 3.8 g/dL (3.5-5.0); Alkaline Phosphatase 65 U/L (39-117); Anion Gap 14 (12-20); Aspartate Amino Transferase 21 U/L (5-31); Bilirubin Total 0.8 mg/dL (0.0-1.0); Blood Urea Nitrogen 17 mg/dL (9-16); Calcium 8.6 mg/dL (8.4-10.2); Carbon Dioxide 21 mmol/L (22-29); Chloride 111 mmol/L (96-108); Creatinine Clr Calc Pharmacy 103.7; Estimated Glomerular Filt Rate > 60; Glucose Random 96 mg/dL (60-115); Potassium 3.8 mmol/L (3.3-5.1); Sodium 142 mmol/L (135-145); Total Protein 6.6 g/dL (6.5-8.0)
[2024-06-30 06:48] LABS: Cholesterol 158 mg/dL (<200); HDL Cholesterol 45 mg/dL (>40); LDL Cholesterol Calculated 88 mg/dL (<100); Triglycerides 127 mg/dL (<150); Troponin-I High Sensitivity < 2.7 ng/L (<3.5-17.0)
[2024-06-30 06:56] LABS: B Type Natriuretic Peptide 51 pg/mL (<100)
[2024-06-30 07:02] LABS: Estimated Average Glucose 97 mg/dL; Hemoglobin A1C 100.4603 umol/L; Total Hemoglobin (HGBA1C) 3219.7187 umol/L
[2024-06-30] MEDS: LORazepam 2 MG/ML VIAL 1 MG IVPUSH (07:16)
[2024-06-30] MEDS: Ketorolac Tromethamine 15 MG/ML VIAL IVPUSH (07:17)
[2024-06-30] MEDS: Lactated Ringers 1,000 ML 125 ML IV (07:19)
[2024-06-30] MEDS: amLODIPine Besylate 5 MG TABLET PO (07:19)
[2024-06-30] MEDS: hydrALAZINE HCl 20 MG/ML VIAL 10 MG IVPUSH ×2 (07:20→09:24)
[2024-06-30 07:40] LABS: Free T4 (Free Thyroxine) 0.87 ng/dL (0.71-1.85)
--- NOTE | 2024-06-30 08:16 | PC.NURSE ---
Brittney woke up at 0440 and began to vomit. Nurse went to room and took vital signs. Blood pressure was 200/110 manual with a HR of 86. A rapid response was called. Patient was seen by Dr. Dawson and labs and medications were ordered. A KUB was also ordered but could not be done because x-ray staff could not come to unit and patient was too unstable to transport downstairs at that time. Patient was given oral Zofran. Patient continued to vomit for an hour after medication was given. Nurse could not administer the Tramadol or Norvasc that was ordered PO, Dr. Dawson was informed and ordered IV push to be given with Lactated ringers to run at 125ml for 8 hours.
[2024-06-30] MEDS: Prochlorperazine Edisylate 10 MG/2 ML VIAL 5 MG IVPUSH (09:22)
--- NOTE | 2024-06-30 10:20 | PM.EVENT ---
Event Note Date of Service: 06/30/24 Event Note: Follow up for pt admitted to M3 psych unit with intractable nausea, vomiting and elevated BP. Pt received additional dose of hydralazine 10 mg IV and BP has come down to 166/81. Pt complains of lingering nausea, but better controlled after Compazine 5 mg IV. Pt seen and evaluated where she is resting comfortably in bed, lying on her right side. Pt complains of some lower abdominal pain associated with vomiting. No fever or chills. Abdominal exam benign: Abdomen soft, nondistended, bowel sounds in all 4 quadrants, mild lower abdominal tenderness. KUB without evidence of bowel obstruction. Labs reassuring without electrolyte abnormalities. Renal and hepatic function WNL. Troponin negative. BNP negative. Pt's current workup and exam reassuring for acute abdomen. N/V possibly secondary to anxiety and/or cocaine withdrawal. Pt reports has been smoking crack daily for the past 7-8 months, last used 3 days ago. Plan: Clonidine 0.1 mg t.i.d. for anxiety and HTN Amlodipine 5 mg p.o. for HTN Lidocaine patch on abdomen for pain management Tylenol 1000 mg x1 for pain management Ondansetron 4 mg IV x1 for nausea Pt currently appears stable enough to remain on the psychiatric floor and will try to switch to p.o. medications once patient's nausea under control. Will continue to follow for now. Time Spent With Patient Time: Total time managing care of this patient today ____ minutes.
[2024-06-30] MEDS: cloNIDine HCL 0.1 MG TABLET PO ×2 (10:54→15:59)
[2024-06-30] MEDS: traMADoL HCL 50 MG TABLET PO (10:54)
[2024-06-30] MEDS: ondansetron HCL 4 MG/2 ML VIAL IVPUSH ×2 (10:54→22:32)
--- NOTE | 2024-06-30 11:57 | MHC.RECOVRN ---
Met with pt in 322-1 after consult placed to Addiction Medicine for possible W/D sx of crack cocaine and THC. Pt currently on psych floor receiving MH stablization services. ? Pt laying in bed, asleep, wakes to voice but is very tired and not feeling well. She is receiving IV and medication for intractable N/V. May be transferred to medical floor if not stabilized.? Pt declined visit today due to not feeling well but did accept resource folder. Folder left and message to ACS team to F/U once pt. feeling better. ACS available PRN.
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
[2024-06-30 17:35] LABS: Influenza A PCR NEGATIVE (Negative); Influenza B PCR NEGATIVE (Negative); Resp Syncy Virus RNA Qual PCR NEGATIVE (Negative); SARS COV2 PCR INHOUSE NEGATIVE (Negative)
[2024-06-30] MEDS: cloNIDine 0.2 MG PATCH.TDWK TRANSDERMA (20:03)
[2024-07-01] MEDS: 0.9 % Sodium Chloride Flush 3 ML SYRINGE IVFLUSH ×4 (00:05→23:21)
[2024-07-01 05:06] VITALS: BP 147/70; PULSE 77; RESP 16; TEMP 36.5; O2SAT 97
[2024-07-01] MEDS: ondansetron HCL 4 MG/2 ML VIAL IVPUSH ×2 (05:52→18:04)
[2024-07-01 07:48] VITALS: BP 114/54; PULSE 70; RESP 14; TEMP 37.6; O2SAT 93
[2024-07-01] MEDS: amLODIPine Besylate 5 MG TABLET PO (08:09)
[2024-07-01] MEDS: Ibuprofen 600 MG TABLET PO ×2 (09:01→23:17)
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
[2024-07-01] MEDS: Baclofen 10 MG TABLET PO (11:47)
[2024-07-01 11:57] VITALS: BP 161/89; PULSE 84; RESP 16; TEMP 36.7; O2SAT 96
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
[2024-07-01 14:59] LABS: Amphetamine Screen Urine Not Detected (Not Detect); Barbiturates, Urine Not Detected (Not Detect); Benzodiazepines Screen Urine Not Detected (Not Detect); Buprenorphine Scr Not Detected (Not Detect); Cannabinoid Screen Urine POSITIVE (Not Detect); Cocaine Screen Urine POSITIVE (Not Detect); Fentanyl, urine Not Detected (Not Detect); Methadone Screen, Urine Not Detected (Not Detect); Opiate Screen Urine Not Detected (Not Detect); Oxycodone Screen Urine Not Detected (Not Detect); Phencyclidine Screen Urine Not Detected (Not Detect)
[2024-07-01 15:12] VITALS: BP 137/65; PULSE 60; RESP 14; TEMP 37; O2SAT 98
[2024-07-01] MEDS: Acetaminophen 325 MG TABLET 975 MG PO (18:29)
[2024-07-01 20:00] VITALS: BP 134/73; PULSE 70; RESP 16; TEMP 36.9; O2SAT 96
[2024-07-01] MEDS: traZODone HCL 50 MG TABLET PO (23:17)
[2024-07-01 23:46] LABS: UPreg QC Valid YES; Urine Pregnancy NEGATIVE (NEGATIVE)
[2024-07-01 23:47] VITALS: BP 131/81; PULSE 62; RESP 18; TEMP 37.4; O2SAT 95
[2024-07-02] VITALS (7 sets, daily range): BP systolic 101–168; BP diastolic 63–95; PULSE 64–71; RESP 16–18; TEMP 36.4–37.6; O2SAT 94–96
[2024-07-02] MEDS: amLODIPine Besylate 5 MG TABLET PO (08:51)
[2024-07-02] MEDS: Ibuprofen 600 MG TABLET PO ×2 (08:52→20:27)
[2024-07-02] MEDS: 0.9 % Sodium Chloride Flush 3 ML SYRINGE IVFLUSH ×3 (09:03→23:15)
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
[2024-07-02] MEDS: Acetaminophen 325 MG TABLET 975 MG PO ×2 (12:07→17:55)
[2024-07-02] MEDS: Capsaicin 0.025% Cream 60 GM TUBE 1 APPL TOPICAL ×2 (12:08→20:28)
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
[2024-07-02] MEDS: ondansetron HCL 4 MG/2 ML VIAL IVPUSH (17:55)
[2024-07-02] MEDS: Divalproex Sodium ER 250 MG TAB.ER.24H PO (20:25)
[2024-07-02] MEDS: Baclofen 10 MG TABLET PO (20:26)
[2024-07-02] MEDS: traZODone HCL 50 MG TABLET PO ×2 (20:27→23:16)
[2024-07-02] MEDS: hydrOXYzine HCL 25 MG TABLET PO (20:28)
--- NOTE | 2024-07-02 23:32 | PC.NURSE ---
VS 101/63, 71. patient requesting not to be to woken for VS during the night.
--- NOTE | 2024-07-03 | ECG_ITS ---
Test Reason : ck rhythm Blood Pressure : */* mmHG Vent. Rate : 62 BPM Atrial Rate : 62 BPM P-R Int : 146 ms QRS Dur : 96 ms QT Int : 430 ms P-R-T Axes : 70 26 50 degrees QTcB Int : 436 ms Normal sinus rhythm Normal ECG No previous ECGs available Referred By: Edith Jon Electronically Signed By: Ryland Gamboa
[2024-07-03 07:00] VITALS: BP 169/80; PULSE 63; RESP 16; TEMP 37.2; O2SAT 96
[2024-07-03 07:41] VITALS: BP 169/80; PULSE 63; RESP 16; TEMP 37.2; O2SAT 96
[2024-07-03] MEDS: amLODIPine Besylate 5 MG TABLET PO (08:34)
[2024-07-03] MEDS: Acetaminophen 325 MG TABLET 975 MG PO ×2 (08:35→22:26)
[2024-07-03] MEDS: 0.9 % Sodium Chloride Flush 3 ML SYRINGE IVFLUSH (08:36)
[2024-07-03] MEDS: Capsaicin 0.025% Cream 60 GM TUBE 1 APPL TOPICAL ×2 (11:47→18:00)
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
[2024-07-03] MEDS: Ibuprofen 600 MG TABLET PO (18:00)
[2024-07-03 20:00] VITALS: BP 136/81; PULSE 67; RESP 15; TEMP 37.4; O2SAT 97
[2024-07-03] MEDS: Baclofen 10 MG TABLET PO (20:24)
[2024-07-03] MEDS: hydrOXYzine HCL 25 MG TABLET PO (20:25)
[2024-07-03] MEDS: traZODone HCL 50 MG TABLET PO ×2 (20:25→22:26)
[2024-07-03] MEDS: Divalproex Sodium ER 250 MG TAB.ER.24H PO (20:25)
[2024-07-04 07:00] VITALS: BMI 30.4
[2024-07-04 07:37] VITALS: BP 177/87; PULSE 63; RESP 14; TEMP 36.9; O2SAT 97
[2024-07-04 08:47] VITALS: BP 143/68
[2024-07-04] MEDS: amLODIPine Besylate 5 MG TABLET PO (08:47)
[2024-07-04] MEDS: Ibuprofen 600 MG TABLET PO ×2 (08:52→20:16)
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
[2024-07-04] MEDS: Capsaicin 0.025% Cream 60 GM TUBE 1 APPL TOPICAL (10:38)
[2024-07-04] MEDS: Acetaminophen 325 MG TABLET 975 MG PO (14:37)
[2024-07-04 19:52] VITALS: BP 128/72; PULSE 62; RESP 14; TEMP 36.9; O2SAT 98
[2024-07-04] MEDS: Baclofen 10 MG TABLET PO (20:16)
[2024-07-04] MEDS: Divalproex Sodium ER 250 MG TAB.ER.24H PO (20:16)
[2024-07-04] MEDS: traZODone HCL 50 MG TABLET PO ×2 (20:16→21:42)
[2024-07-04] MEDS: hydrOXYzine HCL 25 MG TABLET PO (21:42)
[2024-07-05] MEDS: Acetaminophen 325 MG TABLET 975 MG PO (03:12)
[2024-07-05 07:20] VITALS: BP 183/80; PULSE 60; RESP 14; TEMP 36.5; O2SAT 97
[2024-07-05 08:29] VITALS: BP 183/80
[2024-07-05] MEDS: amLODIPine Besylate 5 MG TABLET PO (08:29)
[2024-07-05] MEDS: Naloxone HCl Nasal TAKE HOME 4 MG SPRAY 8 MG NOSTRILALT (08:30)
[2024-07-05 08:40] LABS: Ammonia 33 umol/L (13-55)
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
[2024-07-05 08:48] LABS: Valproate 18.5 mcg/mL (50.0-100.0)
[2024-07-05 08:49] LABS: Alanine Aminotransferase 25 U/L (0-31); Albumin Level 3.7 g/dL (3.5-5.0); Alkaline Phosphatase 84 U/L (39-117); Aspartate Amino Transferase 21 U/L (5-31); Bilirubin Direct 0.1 mg/dL (0.0-0.5); Bilirubin Total 0.3 mg/dL (0.0-1.0); Total Protein 6.8 g/dL (6.5-8.0)
== END 2024-07-05 10:08 | disposition home or self-care (01) | DRG 753 ==
PROVIDERS: Nurse Practitioner Family; Psychiatry & Neurology Psychiatry; Student in an Organized Health Care Education/Training Program; Admitting Provider Psychiatry & Neurology Psychiatry; Responsible Provider Registered Nurse; Visit Provider Psychiatry & Neurology Psychiatry
DX: F31.9 Bipolar disorder, unspecified (principal); F12.90 Cannabis use, unspecified, uncomplicated; F17.210 Nicotine dependence, cigarettes, uncomplicated; Z71.6 Tobacco abuse counseling; F14.13 Cocaine abuse, unspecified with withdrawal; F41.9 Anxiety disorder, unspecified; Z79.899 Other long term (current) drug therapy
CPT/HCPCS: 0241U; 36415; 74018; 80053; 80061; 80076; 80164; 80307; 81025; 82140; 83036; 83880; 84439; 84443; 84484; 85025; 93005; J0360; J0737; J1885; J2060; J2405; J7120

== ENCOUNTER 2024-06-29 03:30 | Outpatient (BNV) | payer OTHER, SELFPAY | END 2024-06-30 08:45 | PROVIDERS: Admitting Provider Psychiatry & Neurology Psychiatry; Visit Provider Radiology Diagnostic Radiology | DX: R11.0 Nausea (principal) | CPT/HCPCS: 74018 ==

== ENCOUNTER 2024-06-29 03:30 | Outpatient (BNV) | payer OTHER, SELFPAY | END 2024-07-03 10:54 | PROVIDERS: Admitting Provider Psychiatry & Neurology Psychiatry; Responsible Provider Registered Nurse; Visit Provider Internal Medicine Cardiovascular Disease | DX: Z13.6 Encounter for screening for cardiovascular disorders (principal) | CPT/HCPCS: 93010 ==

== ENCOUNTER → 2024-06-29 03:30 | Outpatient (BNV) | payer OTHER, SELFPAY | PROVIDERS: Admitting Provider Psychiatry & Neurology Psychiatry; Visit Provider Clinical Nurse Specialist Psychiatric/Mental Health, Adult | DX: F31.4 Bipolar disorder, current episode depressed, severe, without psychotic features (principal); F12.90 Cannabis use, unspecified, uncomplicated; F14.10 Cocaine abuse, uncomplicated | CPT/HCPCS: 90792; 99231; 99232; 99238; 99499 ==

== ENCOUNTER → 2024-06-29 03:30 | Outpatient (BNV) | payer OTHER, SELFPAY | PROVIDERS: Admitting Provider Psychiatry & Neurology Psychiatry; Visit Provider Student in an Organized Health Care Education/Training Program | DX: Z00.8 Encounter for other general examination (principal) | CPT/HCPCS: 99429; 99499 ==